=== PATIENT | male | born 1960 | race Caucasian/White ===

== ENCOUNTER 2021-12-11 14:52 | Emergency (ER) | payer SELFPAY ==
[2021-12-11 15:06] VITALS: TEMP 98.1; BMI 27.3
[2021-12-11] MEDS ORDERED: ASPIRIN 81 MG CHEWABLE TABLETS PO ONE (15:25)
[2021-12-11 16:16] LABS: BASO % 0.6 % (0-2.0); EOS % 1.9 % (0-4.5); HEMATOCRIT 42.2 % (35.4-49); HEMOGLOBIN 14.2 GM/dL (11.7-16.9); LYMPH % 18.7 % (8-40); MCH 32.3 pg (25.7-33.7); MCHC 33.6 g/dl (32.0-35.9); MEAN CELL VOLUME 96.1 fl (80-96); MONO % 10.2 % (3.8-10.2); NEUT % 68.6 % (42.8-82.8); PLATELET COUNT 270 10^3/uL (134-434); RBC 4.39 M/mm3 (4.00-5.60); WHITE BLOOD COUNT 8.5 K/mm3 (4.0-10.0)
[2021-12-11 16:41] LABS: CALCIUM 8.8 mg/dL (8.5-10.1)
[2021-12-11 16:43] LABS: ALBUMIN 3.9 g/dl (3.4-5.0)
[2021-12-11 16:45] LABS: CREATININE 0.7 mg/dL (0.55-1.3)
[2021-12-11 16:47] LABS: BILIRUBIN,TOTAL 0.5 mg/dL (0.2-1); TOT PROT 6.8 g/dl (6.4-8.2)
[2021-12-11 16:51] LABS: BLOOD UREA NITROGEN 12.1 mg/dL (7-18)
[2021-12-11 18:35] VITALS: BP 138/80; PULSE 76
== END 2021-12-11 20:29 | disposition left against medical advice (07) ==
LOC: JER 14:52
DX: R55 Syncope and collapse (principal)
CPT/HCPCS: 36415; 71045-TC-FY; 80053; 82962; 83690; 84484; 85025; 86850; 86900; 86901; 93005; 93010; 99284-25; C9803-CS; U0003; U0005